=== PATIENT | male | born 1990 | race Caucasian/White ===

== ENCOUNTER 2021-09-11 16:22 | Inpatient (IN) ==
[2021-09-11 17:48] LABS: ABS Basophils 0.1 10^3/ul (0-0.2); ABS Eosinophils 0.1 10^3/ul (0-0.6); ABS Lymphocytes 1.5 10^3/ul (1.0-4.8); ABS Monocytes 0.8 10^3/ul (0-0.8); ABS Neutrophils 12.2 10^3/ul (1.5-7.7); Eosinophil % 0.8 %; Hematocrit 43 % (42-52); Hemoglobin 15.1 g/dL (14.0-18.0); Lymphocyte % 10.1 %; Mean Corpuscular HGB Conc 35 g/dL (31-36); Mean Corpuscular Hemoglobin 33 pg (27-31); Mean Corpuscular Volume 94 fL (80-94); Mean Platelet Volume 7.3 fL (7.4-10.4); Platelet Count 281 10^3/uL (150-450); Red Cell Distribution Width 13 % (10-15); White Blood Count 14.7 10^3/uL (3.5-10.8)
[2021-09-11 18:07] LABS: ALT 25 U/L (7-52); AST 29 U/L (13-39); Albumin 4.9 g/dL (3.2-5.2); Albumin/Globulin Ratio 1.4 (1-3); Alkaline Phosphatase 63 U/L (35-149); Anion Gap 10 mmol/L (2-11); Blood Urea Nitrogen 9 mg/dL (6-24); CO2 Carbon Dioxide 27 mmol/L (22-32); Calcium 9.8 mg/dL (8.6-10.3); Chloride 102 mmol/L (101-111); Globulin 3.4 g/dL (2-4); Glucose 91 mg/dL (70-100); Potassium 3.5 mmol/L (3.5-5.0); Sodium 139 mmol/L (135-145); Total Protein 8.3 g/dL (6.4-8.9); eGFR CKD-EPI 109.7 (>60)
[2021-09-11 18:33] LABS: Acetaminophen < 15 mcg/mL; Alcohol, S < 13 mg/dL (<13); Salicylate < 2.50 mg/dL (<30)
[2021-09-11 18:42] LABS: TSH Ultra Thyroid Stim Horm 3.18 mcIU/mL (0.34-5.60)
[2021-09-11 19:41] LABS: Urine Appearance Cloudy; Urine Bilirubin Negative (Negative); Urine Blood 1+ (Negative); Urine Color Amber; Urine Glucose Negative (Negative); Urine Ketones Trace (Negative); Urine Nitrite Negative (Negative); Urine Protein 1+(30 mg/dL) (Negative); Urine Specific Gravity 1.024 (1.002-1.030); Urine Urobilinogen Negative (Negative)
[2021-09-11 19:45] LABS: Urine Bacteria Absent (Absent); Urine Red Blood Cell 3+(>10/hpf) (Absent); Urine Squamous Epithelial Cell Present (Absent); Urine White Blood Cell 2+(11-20/hpf) (Absent)
[2021-09-11 20:11] LABS: Urine Benzodiazepine Screen None Detected (None Detect); Urine Cannabinoids Screen Presumptive Positive (None Detect); Urine Opiates Screen None Detected (None Detect)
[2021-09-12] MEDS ORDERED: Nicotine GUM 2MG FRUIT FLAVOR PO ONE (02:30)
[2021-09-12] MEDS ORDERED: Al Hydrox/Mg Hydrox/Simet LIQ 30 ML UDC PO PRN (03:58)
[2021-09-12] MEDS ORDERED: CHLORPROMAZINE PO PRN (04:01)
[2021-09-12] MEDS: Nicotine GUM 2MG FRUIT FLAVOR PO PRN ×5 (06:52→18:09)
[2021-09-12] MEDS: Vitamin THERAPEUTIC TAB PO SCH (09:13)
[2021-09-13] MEDS: Vitamin THERAPEUTIC TAB PO SCH (11:15)
[2021-09-13] MEDS: Nicotine GUM 2MG FRUIT FLAVOR PO PRN (11:17)
[2021-09-14 07:51] LABS: HDL Cholesterol 53.1 mg/dL
[2021-09-14] MEDS: Vitamin THERAPEUTIC TAB PO SCH (08:28)
[2021-09-14] MEDS: Nicotine GUM 2MG FRUIT FLAVOR PO PRN (08:30)
[2021-09-14 15:14] LABS: HIV 4th Generation Nonreactive (Nonreactive)
[2021-09-15] MEDS: Nicotine GUM 2MG FRUIT FLAVOR PO PRN ×2 (07:49→10:49)
[2021-09-15] MEDS: Vitamin THERAPEUTIC TAB PO SCH (10:48)
[2021-09-16] MEDS: Vitamin THERAPEUTIC TAB PO SCH (08:27)
[2021-09-16] MEDS: Nicotine GUM 2MG FRUIT FLAVOR PO PRN ×2 (08:29→15:03)
[2021-09-17] MEDS: Vitamin THERAPEUTIC TAB PO SCH (08:54)
[2021-09-17] MEDS: Nicotine GUM 2MG FRUIT FLAVOR PO PRN ×4 (08:55→19:51)
[2021-09-18] MEDS: Vitamin THERAPEUTIC TAB PO SCH (08:47)
[2021-09-18] MEDS: Nicotine GUM 2MG FRUIT FLAVOR PO PRN ×3 (10:37→15:54)
[2021-09-18] MEDS ORDERED: Nicotine GUM 4MG FRUIT FLAVOR PO ONE (20:19)
[2021-09-19] MEDS: Nicotine GUM 4MG FRUIT FLAVOR PO PRN ×5 (07:18→19:08)
[2021-09-19] MEDS: Vitamin THERAPEUTIC TAB PO SCH (09:27)
[2021-09-19] MEDS: Nicotine PATCH 21 MG/24 HR PATCH TRANSDERM SCH (09:28)
[2021-09-20] MEDS: Nicotine GUM 4MG FRUIT FLAVOR PO PRN ×5 (07:26→21:44)
[2021-09-20] MEDS: Nicotine PATCH 21 MG/24 HR PATCH TRANSDERM SCH (09:23)
[2021-09-20] MEDS: Vitamin THERAPEUTIC TAB PO SCH (09:23)
[2021-09-21] MEDS: Nicotine GUM 4MG FRUIT FLAVOR PO PRN ×2 (06:20→09:12)
[2021-09-21 08:03] VITALS: BP 121/77
[2021-09-21] MEDS: Vitamin THERAPEUTIC TAB PO SCH (09:11)
[2021-09-21] MEDS: Nicotine PATCH 21 MG/24 HR PATCH TRANSDERM SCH (09:12)
== END 2021-09-21 12:28 | disposition home or self-care (01) | DRG 885 ==
LOC: ED 16:22 → BSU 23:55
PROVIDERS: ADMIT Psychiatry & Neurology Addiction Psychiatry; ATTEND Psychiatry & Neurology Psychiatry